=== PATIENT | male | born 1990 | race Caucasian/White ===

== ENCOUNTER 2022-12-28 19:10 | Emergency (ER) | payer OTHER | END 2022-12-28 22:30 | disposition home or self-care (01) | LOC: JD.ED 19:10 | DX: R07.89 Other chest pain (principal); D72.829 Elevated white blood cell count, unspecified; F17.220 Nicotine dependence, chewing tobacco, uncomplicated; E66.9 Obesity, unspecified; Z68.39 Body mass index [BMI] 39.0-39.9, adult | CPT/HCPCS: 36415; 71046; 71046-26; 80053; 83735; 83880; 84484; 85025; 85379; 85610; 85730; 93005; 93010; 99284; 99285 ==